=== PATIENT | male | born 1975 | race Caucasian/White ===

== ENCOUNTER → 2018-01-09 19:01 | Outpatient (CLI) | payer OTHER, SELFPAY ==
--- NOTE | 2018-01-09 19:06 | DI.MRI.S_ITS ---
PROCEDURE: MR PELVIS WO CON INDICATIONS: LOWER ABDOMINAL PAIN - right side TECHNIQUE: Noncontrast axial and coronal T1 spin echo and STIR through the lumbosacral plexus region. Optional contrast may be given, followed by axial and coronal T1 spin echo with fat saturation through the sacral plexus. COMPARISON: None. FINDINGS: Image quality: Excellent. Lumbosacral plexus: Superior to the piriformis muscles, the pre-plexal structures appear normal, including the lumbosacral trunk and S1 root. Just anterior to the piriformis muscles, the sacral plexus proper demonstrates normal morphology (lumbosacral trunk, S1 to S3 nerve roots). Inferior to the piriformis muscles, the sciatic nerves appear normal. Soft tissues: The piriformis muscles appear symmetric in size. No presacral masses. Rectum appears normal in caliber and wall thickness. No pathologic free pelvic fluid. No visualized adenopathy by size criteria. Bones: Marrow is normal in overall signal. IMPRESSION: No lesion seen, source of right-sided pain is not identified. Throughout the pelvis no infectious or neoplastic process is suspected. Along the course of the lumbosacral plexus no lesion or impingement on the normal course of the nerve roots is found. Dictated by: Leonardo Guido M.D. on 01/10/2018 at 10:57 Approved by: Leonardo Guido M.D. on 01/10/2018 at 10:59
== END ==
PROVIDERS: Visit Provider General Practice
DX: R10.31 Right lower quadrant pain (principal)
CPT/HCPCS: 72195

== ENCOUNTER 2019-05-21 12:58 | Day surgery (SDC) | payer OTHER, SELFPAY ==
--- NOTE | 2019-05-21 | PATH_ITS ---
[facility] Accession Number: [id number] . 01 Material submitted: . PART A: cecum - CECUM POLYP PART B: hepatic flexure - HEPATIC POLYP . 02 Diagnosis: A. Cecum, Polyp: Tubular adenoma. . B. Hepatic Flexure, Polyp: Sessile serrated adenoma. [facility] 05/22/2019 1025 Local . 02 Electronically signed: . Carroll Cuevas MD, PhD, Pathologist NPI- [id number] . 01 Gross description: . Part A: CECUM POLYP: Received in formalin are 3 fragment(s) of curiel, soft tissue measuring 0.1 x 0.1 x 0.1 cm to 0.3 x 0.3 x 0.2 cm submitted entirely in 1 cassette(s) Part B: HEPATIC POLYP: Received in formalin are 4 fragment(s) of curiel, soft tissue measuring 0.2 x 0.2 x 0.2 cm to 0.5 x 0.3 x 0.2 cm submitted entirely in 1 cassette(s) /[facility] 05/21/20192020 Local . 02 Pathologist provided ICD-10: D12.0, D12.3 . 02 CPT . 658789, [id number] Performed at: 01 [facility] [address], [place], [place] [id number] MD Alexandru Murillo MD Phone: [phone] Performed at: 02 [facility] [address] [place], [place] [id number] MD Rosey Felix MD Phone: [phone]
--- NOTE | 2019-05-21 11:58 | PM.PREOP ---
Pre-operative Note Interval Note History & Physical reviewed/Exam performed by Physician: Yes Changes to H&P: No ASA Class (for procedural sedation): I
--- NOTE | 2019-05-21 11:59 | PM.OP.ENDO ---
Operative Date/Time/Diagnoses Date of procedure: 05/21/19 Pre-op diagnosis: Abdominal pain bloating and intermittent rectal bleeding. Procedure & Clinicians Study performed: Colonoscopy Indications: Abdominal pain bloating and intermittent rectal bleeding Surgeon: Ingrid Kapoor Procedure Notes Procedure in detail: After informed consent was obtained the patient was placed in left lateral decubitus position. The video colonoscope was introduced the rectum and slowly advanced cecum. On slow withdrawal mucosa was carefully examined. Preparation was good. The scope was removed. The patient tolerated procedure well. Blood loss none Complications none Sedation Total sedation time 21 minutes Fentanyl 100 micro g versed 7 mg IV titration Findings 1. Sigmoid diverticulosis, mild 2. Minimal internal hemorrhoids seen on retroflexed view 3. 6 mm polyp in the cecum Jumbo biopsy removed completely 4. 1.4 cm polyp in the hepatic flexure removed piecemeal with patel snare. All segments retrieved. We'll follow up on pathology results with the patient. He should follow up in [place] with Dr. Gayle at his convenience after the 1st of the year.
[2019-05-21] MEDS: SODIUM CHLORIDE 0.9% 1,000 ML 21 ML IV (13:10)
[2019-05-21 13:14] VITALS: BP 127/82; PULSE 82; RESP 15; TEMP 36.8; BMI 254.9
[2019-05-21 13:55] VITALS: BP 113/70; PULSE 76; RESP 13; TEMP 36.6; O2SAT 93
[2019-05-21] MEDS: fentaNYL 250 MCG/5 ML INJ IV (13:55)
[2019-05-21] MEDS: MIDAZOLAM 5 MG/5 ML VIAL IV (13:56)
[2019-05-21 14:00] VITALS: BP 106/69; PULSE 76; RESP 14; O2SAT 93
[2019-05-21 14:05] VITALS: BP 118/80; PULSE 93; RESP 12; O2SAT 96
[2019-05-21 14:10] VITALS: BP 121/82; PULSE 76; RESP 20; O2SAT 96
== END 2019-05-21 14:34 | disposition home or self-care (01) ==
PROVIDERS: Visit Provider Internal Medicine Gastroenterology
PROC: 0DJD8ZZ Inspection of Lower Intestinal Tract, Via Natural or Artificial Opening Endoscopic (ICD-10-PCS; CPT 45378; principal; 2019-05-21 14:00)
DX: K57.30 Diverticulosis of large intestine without perforation or abscess without bleeding (principal); K64.8 Other hemorrhoids; D12.0 Benign neoplasm of cecum; D12.3 Benign neoplasm of transverse colon
CPT/HCPCS: 45385; 45380; J2250; J3010

== ENCOUNTER → 2023-03-14 08:05 | Outpatient (CLI) | payer OTHER, SELFPAY ==
--- NOTE | 2023-03-14 | DI.US.S_ITS ---
PROCEDURE: US ABDOMEN LIMITED INDICATIONS: ELEVATED LIVER FUNCTION TESTS TECHNIQUE: Real-time focused scanning was performed of the abdomen, with image documentation. COMPARISON: None. FINDINGS: The liver demonstrates normal size. The liver demonstrates generalized moderately increased echogenicity. This decreases ultrasound sensitivity for detection of hepatic masses. No findings of gallstones or sludge are seen. The gallbladder wall is not thickened, measuring 3 mm or less. No specific pericholecystic fluid is seen. The sonographic Lai sign is negative. There is no biliary dilatation, the common bile duct measures 3-4 mm. No significant pancreatic abnormality is seen on these images. IMPRESSION: The liver demonstrates increased echogenicity. This finding is nonspecific, yet it is most commonly attributed to fatty infiltration. The gallbladder demonstrates a normal sonographic appearance. No biliary dilatation is seen. Dictated by: Cristobal Monte M.D. on 03/14/2023 at 12:07 Approved by: Cristobal Monte M.D. on 03/14/2023 at 12:08
== END ==
PROVIDERS: Referring Provider Internal Medicine; Visit Provider Internal Medicine
DX: R74.8 Abnormal levels of other serum enzymes (principal)
CPT/HCPCS: 76705